=== PATIENT | female | born 1985 | race Caucasian/White ===

== ENCOUNTER 2016-08-26 12:46 | Inpatient (IN) | payer OTHER ==
[~2016-08-26] VITALS: Ht 175.3 cm; Wt 97.7 kg
[~2016-08-26 12:46] MED LIST: PRENATAL1 TA1
[2016-09-30] VITALS (14 sets, daily range): BP systolic 13–128; BP diastolic 57–79; PULSE 69–120; TEMP 98.1–98.9
[2016-09-30] MEDS ORDERED: MOXEZA 3 ML3 ML OP (06:22)
[2016-09-30 09:09] LABS: BASO % 0.4 % (0.0-2.0); EOS # 0.3 (0.0-0.7); EOS % 2.7 % (0-4.0); GRAN # 7.9 (1.4-6.5); GRAN % 69.2 % (42.2-75.2); HEMATOCRIT 37.3 % (37.0-47.0); HEMOGLOBIN 12.9 g/dl (12.5-16.0); LYMPH # 1.9 (1.2-3.4); LYMPH % 16.3 % (20.0-51.0); MEAN CELL VOLUME 95 fl (80.0-100.0); MEAN CORPUSCULAR HEMOGLOBIN 33 pg (27.0-31.0); MEAN CORPUSCULAR HGB CONC 35 g/dl (33.0-37.0); MEAN PLATELET VOLUME 11.2 fl (7.4-10.4); MONO % 9.1 % (1.7-9.3); PLATELET COUNT 138 K/mm3 (130-400); RED BLOOD COUNT 3.92 M/mm3 (4.10-5.30); REDCELL DISTRIBUTION WIDTH-CV 12.9 % (11.5-14.5); WHITE BLOOD COUNT 11.4 K/mm3 (4.8-10.8)
[2016-10-01 01:30] VITALS: BP 121/69; PULSE 76; TEMP 97.9
[2016-10-01 05:20] VITALS: BP 116/68; PULSE 71; TEMP 98.2
[2016-10-01 08:35] VITALS: BP 119/64; PULSE 79; TEMP 97.7
[2016-10-01] MEDS ORDERED: IBU600 MG PO (09:25)
[2016-10-01] MEDS ORDERED: PERCOCET 325 MG1 TA2 PO (09:26)
[2016-10-01 14:45] VITALS: BP 112/69; PULSE 84; TEMP 97.7
== END 2016-10-01 18:00 | disposition home or self-care (01) | DRG 775 ==
LOC: LDR 09-30 08:17 → LDRO 09-30 12:44 → EDSTATUS 09-30 15:18 → OB 09-30 15:36
PROVIDERS: Obstetrics & Gynecology
PROC: 10E0XZZ Delivery of Products of Conception, External Approach (ICD-10-PCS; principal; 2016-09-30)
PROC: 0UQM0ZZ Repair Vulva, Open Approach (ICD-10-PCS; 2016-09-30)
DX: O48.0 Post-term pregnancy (principal); O70.0 First degree perineal laceration during delivery; O69.81X0 Labor and delivery complicated by cord around neck, without compression, not applicable or unspecified; Z3A.40 40 weeks gestation of pregnancy; Z37.0 Single live birth
CPT/HCPCS: J2590; J7120

== ENCOUNTER → 2018-02-04 | Outpatient (CLI) | payer OTHER ==
[~2018-02-04] MED LIST changes: +IBU600 MG PO; +MOXEZA 3 ML3 ML OP; +PERCOCET 325 MG1 TA2 PO
== END ==
LOC: COL.RAD 08:15
DX: R10.11 Right upper quadrant pain (principal)

== ENCOUNTER 2019-05-28 00:06 | Emergency (ER) | payer BC ==
[~2019-05-28] VITALS: Ht 175.3 cm; Wt 70.5 kg
[2019-05-28 00:58] LABS: BASO % 0.3 % (0.0-2.0); EOS # 0.3 (0.0-0.7); EOS % 4.1 % (0-4.0); GRAN # 5.6 (1.4-6.5); GRAN % 71.6 % (42.2-75.2); LYMPH # 1.3 (1.2-3.4); LYMPH % 16.3 % (20.0-51.0); MEAN CELL VOLUME 94 fl (80.0-100.0); MEAN CORPUSCULAR HEMOGLOBIN 32 pg (27.0-31.0); MEAN CORPUSCULAR HGB CONC 34 g/dl (33.0-37.0); MEAN PLATELET VOLUME 10.8 fl (7.4-10.4); MONO # 0.6 (0.1-0.6); MONO % 7.3 % (1.7-9.3); PLATELET COUNT 179 K/mm3 (130-400); RED BLOOD COUNT 4.05 M/mm3 (4.10-5.30); REDCELL DISTRIBUTION WIDTH-CV 11.9 % (11.5-14.5)
[2019-05-28 01:07] LABS: ALBUMIN 4.1 gm/dL (3.5-5.0); BILIRUBIN,TOTAL 0.9 mg/dL (0.0-1.0); CALCIUM 9.1 mg/dL (8.4-10.2); CREATININE, serum 0.78 (0.52-1.25); POTASSIUM 3.3 mmol/L (3.4-5.0); TOTAL PROTEIN 6.7 gm/dL (6.4-8.2)
[2019-05-28 01:23] LABS: PROLACTIN 33.1 ng/mL (3.0-18.6)
[2019-05-28 01:38] LABS: TSH w REFLEX 4.85 uIU/mL (0.465-4.680)
[2019-05-28 01:43] LABS: COLLECTION METHOD CLEAN CATCH
[2019-05-28 01:51] LABS: MUCOUS Present /lpf; PH 5 (5-8); SQUAMOUS EPITHELIAL None Seen /hpf; URINE APPEARANCE Clear; URINE BACTERIA None Seen /hpf; URINE BILIRUBIN Negative (NEGATIVE); URINE BLOOD Negative (NEGATIVE); URINE COLOR Yellow; URINE GLUCOSE Negative (NEGATIVE); URINE KETONE 1+ (NEGATIVE); URINE LEUKOCYTE ESTERASE Negative (NEGATIVE); URINE NITRATE Negative (NEGATIVE); URINE PROTEIN(semi-quant) Negative (NEGATIVE); URINE RBC 0-2 /hpf; URINE UROBILINOGEN Negative (NEGATIVE)
[2019-05-28] MEDS ORDERED: KEPPRA 500MG500 MG PO (02:49)
[2019-05-28 03:00] VITALS: BP 114/80; PULSE 71; TEMP 97.7
== END 2019-05-28 03:15 | disposition home or self-care (01) ==
LOC: COL.ER 00:06
PROVIDERS: Emergency Medicine
DX: R56.9 Unspecified convulsions (principal)
CPT/HCPCS: J1953; J7030

== ENCOUNTER → 2019-10-17 | Outpatient (CLI) | payer BC ==
[~2019-10-17] MED LIST changes: +KEPPRA 500MG500 MG PO
== END ==
LOC: MC.RAD 10:00
DX: N63.20 Unspecified lump in the left breast, unspecified quadrant (principal)

== ENCOUNTER → 2020-03-19 | Outpatient (CLI) | payer BC | LOC: COL.RAD 11:03 | DX: K80.20 Calculus of gallbladder without cholecystitis without obstruction (principal) | CPT/HCPCS: Q9967 ==

== ENCOUNTER → 2020-04-09 | Outpatient (CLI) | payer BC | LOC: COL.RAD 09:44 | DX: K80.20 Calculus of gallbladder without cholecystitis without obstruction (principal) ==

== ENCOUNTER → 2023-10-13 | Outpatient (CLI) | payer BC ==
[~2023-10-13] MED LIST changes: +Gadoterate 20 ML VIAL IV ONE; +ISIBLOOM 28 DA1 EACH PO; +KEPPRA XR750 MG PO; +NORCO 325 MG-51 TAB PO
== END ==
LOC: COL.RAD 08:47
DX: G40.909 Epilepsy, unspecified, not intractable, without status epilepticus (principal); G45.9 Transient cerebral ischemic attack, unspecified; H53.9 Unspecified visual disturbance; Z86.69 Personal history of other diseases of the nervous system and sense organs
CPT/HCPCS: A9575